=== PATIENT | male | born 1960 ===

== ENCOUNTER 2018-11-14 02:26 | Emergency (ER) | payer BC ==
[2018-11-14 03:22] LABS: CHLORIDE,CL 104 mmol/L (98-107); SODIUM,NA 138 mmol/L (136-145)
[2018-11-14 03:31] VITALS: BP 108/70
--- NOTE | 2018-11-14 03:35 | EDM.PDOC ---
ED HPI GENERAL MEDICAL PROBLEM - General Chief Complaint: General Stated Complaint: dry mouth, tingling extremities, weakness Time Seen by Provider: 11/14/18 02:40 Source of Information: Reports: Patient, Family History Limitations: Reports: No Limitations - History of Present Illness INITIAL COMMENTS - FREE TEXT/NARRATIVE: Pt had generalized weakness and weakness in his legs. He felt numbness in his legs but no motor loss No chest pain No SOB No N/V/D No PYLE No visual changes Has had similar symptoms in the past Has had CT, MRI stress test that were negative Has been told his sodium was low in the past Onset: Gradual Duration: Hour(s): Location: Reports: Generalized Quality: Reports: Dull Improves with: Reports: None Worsens with: Reports: None - Related Data Allergies Allergy/AdvReac Type Severity Reaction Status Date / Time adhesive tape Allergy Rash Verified 11/14/18 02:33 Home Meds: Home Meds Pravastatin [Pravachol] 40 mg PO BEDTIME 10/17/15 [History] Aspirin [Halfprin] 81 mg PO DAILY 11/14/18 [History] Cholecalciferol (Vitamin D3) [Vitamin D3] 2,000 unit PO DAILY 11/14/18 [History] Finasteride 5 mg PO DAILY 11/14/18 [History] Glucosamine HCl [Vegetarian Glucosamine] 750 mg PO DAILY 11/14/18 [History] Tamsulosin [Tamsulosin 24 Hr] 0.4 mg PO BEDTIME 11/14/18 [History] Ubidecarenone [Co Q-10] 75 mg PO DAILY 11/14/18 [History] Past Medical History HEENT History: Reports: Hard of Hearing, Impaired Vision Cardiovascular History: Reports: Arrhythmia, High Cholesterol Respiratory History: Reports: None Gastrointestinal History: Reports: GERD. Denies: Chronic Constipation, Chronic Diarrhea, GI Bleed, Hepatitis, Inflammatory Bowel Disease, Pancreatitis, PUD Genitourinary History: Reports: None Musculoskeletal History: Reports: Back Pain, Chronic, Fracture, Osteoarthritis Neurological History: Reports: None Immunologic History: Reports: None Oncologic (Cancer) History: Reports: None Dermatologic History: Reports: Eczema - Infectious Disease History Infectious Disease History: Reports: Chicken Pox - Past Surgical History Head Surgeries/Procedures: Reports: None Respiratory Surgical History: Reports: None GI Surgical History: Reports: Hernia, Inguinal Male Surgical History: Reports: Circumcision Endocrine Surgical History: Reports: None Neurological Surgical History: Reports: None Oncologic Surgical History: Reports: None Dermatological Surgical History: Reports: None - Past Imaging History Past Imaging History: Reports: Cardiac Echo, Stress Testing Social & Family History - Family History HEENT: Reports: Allergic Rhinitis Cardiac: Reports: Bypass (Father), CAD (Father), Hypertension (Father, sister), RI (Father with history of 2 MIs initially in the 70s with three-vessel CABG). Denies: Blood Clots/VTE/DVT, High Cholesterol Respiratory: Reports: Asthma, COPD, Sleep Apnea GI: Reports: None. Denies: Cholelithiasis, Colon Polyps, GERD, GI bleed, Inflammatory Bowel Disease, PUD : Reports: Renal Calculus OBGYN: Reports: None. Denies: Endometriosis Musculoskeletal: Reports: Osteoarthritis (Father), RA (Father). Denies: Gout, SLE Neurological: Reports: CVA (Mom with initial CVA in early 70s fatal at age 76). Denies: Alzheimers Disease, Dementia, Migraines, Parkinson's, Seizure, TIA Psychiatric: Reports: None. Denies: Abuse, Victim of, ADHD, Anxiety, Depression , Suicide Attempt Endocrine/Metabolic: Reports: Hypothyroidism (Mother). Denies: Diabetes, Type I , Diabetes, type II, IDDM Hematologic: Reports: None. Denies: Anemia, B12 Deficiency, Transfusion Reaction Immunologic: Reports: Other (See Below) Dermatologic: Reports: None. Denies: Eczema, Psoriasis, Seborrheic Dermatitis Oncologic: Reports: Prostate (Maternal uncle about age 70) - Tobacco Use Smoking Status *Q: Former Smoker Used Tobacco, but Quit: Yes Month/Year Tobacco Last Used: 1 - Caffeine Use Caffeine Use: Reports: None - Living Situation & Occupation Living situation: Reports: , with Family Occupation: Employed ED ROS GENERAL - Review of Systems Review Of Systems: See Below Constitutional: Reports: Weakness HEENT: Reports: No Symptoms Respiratory: Reports: No Symptoms Cardiovascular: Reports: No Symptoms GI/Abdominal: Reports: No Symptoms Musculoskeletal: Reports: No Symptoms Neurological: Reports: Numbness, Tingling ED EXAM, GENERAL - Physical Exam Exam: See Below Exam Limited By: No Limitations General Appearance: Alert, No Apparent Distress Eye Exam: Bilateral Eye: EOMI, PERRL Throat/Mouth: Normal Oropharynx Neck: Supple Respiratory/Chest: Lungs Clear Cardiovascular: Regular Rate, Rhythm GI/Abdominal: Soft, Non-Tender Extremities: Normal Range of Motion Neurological: Alert, Oriented Course - Vital Signs Last Recorded V/S: Last Vital Signs Temp 36.8 C 11/14/18 02:30 Pulse 61 11/14/18 02:56 Resp 13 11/14/18 02:56 BP 112/67 11/14/18 02:56 Pulse Ox 97 11/14/18 02:56 - Orders/Labs/Meds Orders: Active Orders 24 hr Category Date Time Status Cardiac Monitoring [RC] . DIRECTED Care 11/14/18 03:22 Active EKG Documentation Completion [RC] ASDIRECTED Care 11/14/18 03:00 Active Labs: Laboratory Tests 11/14/18 11/14/18 Range/Units 03:00 03:00 WBC 7.2 (4.0-10.2) K/uL RBC 4.86 (4.33-5.41) M/uL Hgb 14.9 (13.1-16.8) g/dL Hct 42.2 (39.0-49.0) % MCV 86.8 (84.0-98.0) fL MCH 30.7 (28.2-33.3) pg MCHC 35.3 (31.7-36.0) g/dL RDW 12.2 (11.2-14.1) % Plt Count 170 (150-350) K/uL Neut % (Auto) 78.6 (45.0-80.0) % Lymph % (Auto) 14.0 (10.0-50.0) % [place] % (Auto) 5.4 (2.0-14.0) % Eos % (Auto) 1.7 (0.0-5.0) % Baso % (Auto) 0.3 (0.0-2.0) % Neut # (Auto) 5.66 (1.40-7.00) K/uL Lymph # (Auto) 1.01 (0.50-3.50) K/uL [place] # (Auto) 0.39 (0.00-1.00) K/uL Eos # (Auto) 0.12 (0.00-0.50) K/uL Baso # (Auto) 0.02 (0.00-0.20) K/uL Sodium 138 (136-145) mmol/L Potassium 3.7 (3.5-5.1) mmol/L Chloride 104 (98-107) mmol/L Carbon Dioxide 25.9 (21.0-32.0) mmol/L BUN 13 (7-18) mg/dL Creatinine 0.89 (0.51-1.17) mg/dL Est Cr Clr Drug Dosing TNP Estimated GFR (MDRD) > 60 mL/min Glucose 116 H (74-106) mg/dL Calcium 9.0 (8.5-10.1) mg/dL Total Bilirubin 0.6 (0.2-1.0) mg/dL AST 22 (15-37) U/L ALT 25 (12-78) U/L Alkaline Phosphatase 62 (46-116) IU/L Troponin I 0.007 (0.000-0.056) ng/mL Total Protein 6.5 (6.4-8.2) g/dL Albumin 3.9 (3.4-5.0) g/dL - Re-Assessments/Exams Free Text/Narrative Re-Assessment/Exam: 11/14/18 03:38 Pt stable in ER No symptoms currently Departure - Departure Time of Disposition: 15:45 Disposition: Home, Self-Care 01 Clinical Impression: Weakness - Discharge Information *PRESCRIPTION DRUG MONITORING PROGRAM REVIEWED*: Not Applicable *COPY OF PRESCRIPTION DRUG MONITORING REPORT IN PATIENT [place]: Not Applicable Referrals: Rory Verdugo PA [Primary Care Provider] - - My Orders Last 24 Hours: My Active Orders 11/14/18 03:00 EKG Documentation Completion [RC] ASDIRECTED 11/14/18 03:22 Cardiac Monitoring [RC] . DIRECTED - Assessment/Plan Last 24 Hours: My Active Orders 11/14/18 03:00 EKG Documentation Completion [RC] ASDIRECTED 11/14/18 03:22 Cardiac Monitoring [RC] . DIRECTED
== END 2018-11-14 04:00 | disposition home or self-care (01) ==
LOC: LL.ED 02:26
DX: R53.1 Weakness (principal); Z91.048 Other nonmedicinal substance allergy status; Z87.891 Personal history of nicotine dependence
CPT/HCPCS: 36415; 80053; 84484; 85025; 93005; 99284-25